=== PATIENT | female | born 2000 | race Caucasian/White ===

== ENCOUNTER 2022-06-11 22:12 | Emergency (ER) | payer BC ==
[~2022-06-11] VITALS: Ht 160 cm; Wt 59.4 kg
--- NOTE | 2022-06-11 22:50 | NUR ---
Dr. Madrigal at bedside for MSE
[2022-06-11] MEDS ORDERED: ONDANSETRON HCL 4 MG TABLET PO ONE (23:00)
[2022-06-11] MEDS ORDERED: ONDANSETRON HCL 4 MG TABLET ONE (23:01)
[2022-06-11 23:16] LABS: HEMATOCRIT 40.6 % (31.2-41.9); MEAN CORPUSCULAR HEMOGLOBIN 25.5 uug (24.7-32.8); MEAN CORPUSCULAR VOLUME 78.4 fL (75.5-95.3); PLATELET COUNT (AUTO) 192 K/uL (179-408)
[2022-06-11 23:23] LABS: CREATININE 0.7 mg/dL (0.6-1.3); POTASSIUM 4.4 mmol/L (3.5-5.1)
[2022-06-11 23:29] LABS: BILIRUBIN,DIRECT 0.4 mg/dL (0.0-0.2); BILIRUBIN,TOTAL 0.7 mg/dL (0.2-1.0); TOTAL PROTEIN, SERUM 7.1 g/dL (6.4-8.2)
--- NOTE | 2022-06-12 00:45 | NUR ---
US at bedside
[2022-06-12] MEDS ORDERED: ONDA4TAB5 PO (01:07)
--- NOTE | 2022-06-12 01:20 | NUR ---
Patient discharged to home in stable condition. Written and verbal after care instructions given. Patient verbalizes understanding of instructions. Stressed follow up or return to ER for worsening s/s.
[2022-06-12 01:27] VITALS: BP 112/59
[2022-06-13 08:06] LABS: HEPATITIS A AB, IgM Negative (Negative)
== END 2022-06-12 01:27 | disposition home or self-care (01) ==
LOC: ER 22:17
DX: K75.9 Inflammatory liver disease, unspecified (principal); Z88.1 Allergy status to other antibiotic agents; Z88.0 Allergy status to penicillin
CPT/HCPCS: 36415; 85025; 86704; 86706; 86709; 86803; Q0162